=== PATIENT | female | born 1985 | race Two or more races ===

== ENCOUNTER 2016-05-20 12:06 | Emergency (ER) | payer OTHER ==
[2016-05-20 12:11] VITALS: BP 115/67; PULSE 65; TEMP 98.7; BMI 22.6
[2016-05-20] MEDS ORDERED: KETOROLAC TROMETHAMINE 60 MG/2 ML VIAL IM ONE (12:55)
[2016-05-20] MEDS ORDERED: KETOROLAC TROMETHAMINE 60 MG/2 ML VIAL ONE (12:57)
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
== END 2016-05-20 13:06 | disposition home or self-care (01) ==
LOC: JERFT 12:06
PROC: 3E0233Z Introduction of Anti-inflammatory into Muscle, Percutaneous Approach (ICD-10-PCS; principal; 2016-05-20)
DX: S16.1XXS Strain of muscle, fascia and tendon at neck level, sequela (principal); V89.2XXS Person injured in unspecified motor-vehicle accident, traffic, sequela
CPT/HCPCS: 99281-25

== ENCOUNTER 2017-03-21 20:09 | Emergency (ER) | payer OTHER ==
[2017-03-21 20:47] VITALS: BP 114/68; PULSE 92; TEMP 99.3; BMI 21.9
--- NOTE | 2017-03-21 22:11 | PDOC ---
History of Present Illness - General Chief Complaint: Headache Stated Complaint: HEADACHE Time Seen by Provider: 03/21/17 21:32 History Source: Patient Exam Limitations: No Limitations - History of Present Illness Initial Comments: 03/21/17 22:06 Patient here with complaints of cough, low-grade fevers, runny nose and frontal/ sinus headache pain 3 days. States everyone at work has been sick with a cold and is also ill and being seen with same here tonight. He has been sick for approximately 5 days. Patient has taken [id number] medications with some mild relief. Timing/Duration: reports: constant, changing over time Severity: reports: mild, moderate Associated Symptoms: reports: cough, nasal congestion, nasal drainage, wheezing. denies: fever/chills, sore throat Past History - Travel Traveled outside of the country in the last 30 days: No Close contact w/someone who was outside of country & ill: No - Past Medical History Allergies/Adverse Reactions: Allergies Allergy/AdvReac Type Severity Reaction Status Date / Time No Known Allergies Allergy Verified 05/20/16 12:11 Home Medications: Ambulatory Orders NK [No Known Home Medication] 03/21/17 - Suicide/Smoking/Psychosocial Hx Smoking History: Never smoked Have you smoked in the past 12 months: No Hx Alcohol Use: No Drug/Substance Use Hx: No Substance Use Type: None Review of Systems - Review of Systems Able to Perform ROS?: Yes Is the patient limited [place] proficient: Yes Constitutional: Yes: Symptoms Reported, See HPI, Malaise. No: Fever Respiratory: Yes: See HPI, Cough. No: Symptoms reported Musculoskeletal: Yes: Symptoms Reported, See HPI, Muscle Pain Integumentary: No: Symptoms Reported Neurological: Yes: Symptoms reported, See HPI, Headache (mental, ethmoid and maxillary sinus tenderness and fullness) All Other Systems: Reviewed and Negative *Physical Exam - Vital Signs Last Vital Signs Temp Pulse Resp BP Pulse Ox 99.3 F 92 H 18 114/68 100 03/21/17 20:44 03/21/17 20:44 03/21/17 20:44 03/21/17 20:44 03/21/17 20:44 - Physical Exam General Appearance: Yes: Nourished, Appropriately Dressed, Apparent Distress, Mild Distress HEENT: positive: TERRY, TMs Normal (ingested but landmarks easily visualized), Pharynx Normal (no redness, swelling or exudate), Rhinorrhea, Sinus Tenderness ( frontal, maxillary, and ethmoid sinus fullness and tenderness) Neck: positive: Supple. negative: Lymphadenopathy (R), Lymphadenopathy (L) Respiratory/Chest: positive: Lungs Clear, Normal Breath Sounds. negative: Wheezing Gastrointestinal/Abdominal: positive: Soft. 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 Probable viral and not influenza therefore we will treat conservatively *DC/Admit/Observation/Transfer Diagnosis at time of Disposition: Upper respiratory infection, viral - Discharge Dispostion Disposition: HOME Condition at time of disposition: Stable Admit: No - Referrals - Patient Instructions Printed Discharge Instructions: DI for Viral Upper Respiratory Infection -- Adult Additional Instructions: Rest, drink lots of fluids: Teas, water, soups, Pedialyte Saltwater gargles Steamy showers/seem to face break up mucus Avoid contact with others until fevers and cough resolved Lots of handwashing and good hygiene Continue [id number] medications for symptomatic relief Tylenol or Motrin for fever and pain Followup with private physician in one to 2 days as needed Return to emergency department for worsened symptoms, fevers, dehydration - Post Discharge Activity Forms/Work/School Notes: Back to Work
== END 2017-03-21 22:20 | disposition home or self-care (01) ==
LOC: JERFT 20:09
DX: J06.9 Acute upper respiratory infection, unspecified (principal); B97.89 Other viral agents as the cause of diseases classified elsewhere
CPT/HCPCS: 99281-25